=== PATIENT | female | born 1980 | race Caucasian/White ===

== ENCOUNTER 2022-06-24 19:53 | Emergency (ER) | payer MEDICAID ==
[~2022-06-24] VITALS: Ht 165.1 cm; Wt 71.2 kg
[2022-06-24 20:12] VITALS: BP 139/85
== END 2022-06-24 21:22 | disposition home or self-care (01) ==
LOC: ER 19:54
DX: S80.01XA Contusion of right knee, initial encounter (principal); S40.012A Contusion of left shoulder, initial encounter; S40.011A Contusion of right shoulder, initial encounter; M25.532 Pain in left wrist; V19.9XXA Pedal cyclist (driver) (passenger) injured in unspecified traffic accident, initial encounter; Y93.89 Activity, other specified; Y92.488 Other paved roadways as the place of occurrence of the external cause; Y99.8 Other external cause status
CPT/HCPCS: 73110; 73564; 99284

== ENCOUNTER → 2023-06-18 | Outpatient (CLI) | payer MEDICAID | END | disposition home or self-care (01) | LOC: RAD 16:34 → ER 16:34 → EDSTATUS 16:47 → RAD 23:59 | DX: S49.92XA Unspecified injury of left shoulder and upper arm, initial encounter (principal); M25.512 Pain in left shoulder; X58.XXXA Exposure to other specified factors, initial encounter; Y93.89 Activity, other specified; Y92.89 Other specified places as the place of occurrence of the external cause; Y99.8 Other external cause status | CPT/HCPCS: 73030 ==

== ENCOUNTER 2023-07-01 08:20 | Outpatient (CLI) | payer MEDICAID | END 2023-07-01 23:59 | disposition home or self-care (01) | LOC: MRI 08:20 | PROVIDERS: ATTEND Student in an Organized Health Care Education/Training Program | DX: M25.512 Pain in left shoulder (principal) | CPT/HCPCS: 73221 ==

== ENCOUNTER 2024-06-01 20:54 | Emergency (ER) | payer MEDICAID ==
[~2024-06-01] VITALS: Ht 165.1 cm; Wt 68.2 kg
[2024-06-01 20:56] VITALS: BP 145/86; PULSE 89; RESP 17; O2SAT 99
[2024-06-01 22:08] VITALS: TEMP 98.4
== END 2024-06-01 22:09 | disposition home or self-care (01) ==
LOC: ER 20:55
DX: S63.681A Other sprain of right thumb, initial encounter (principal); X58.XXXA Exposure to other specified factors, initial encounter; Y93.89 Activity, other specified; Y92.89 Other specified places as the place of occurrence of the external cause; Y99.8 Other external cause status
CPT/HCPCS: 29130; 73130; 99283

== ENCOUNTER 2024-07-25 19:11 | Emergency (ER) | payer MEDICAID ==
[~2024-07-25] VITALS: Ht 165.1 cm; Wt 69.4 kg
[2024-07-25 19:24] VITALS: BP 124/88; PULSE 66; RESP 14; O2SAT 97
--- NOTE | 2024-07-25 20:21 | Physician Documentation ---
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 Denies any HI or SI. At home she attempted to close the wound with 2nd skin and a butterfly bandage, she has noted some drainage from the site today. Edges well approximated. Last tetanus was within the past 5 years. Tetanus Within 5 Years: Yes Medication Reconciliation Allergies: Coded Allergies: No Known Allergies (Unverified , 07/25/24) Review of Systems All Other Systems at this time: Reviewed and Negative Physical Exam Vital Signs: RN Vital Signs have been reviewed: Yes, Temperature: 98.3, Source: Temporal, Heart Rate: 66, Respiratory Rate: 14, BP: 124/88, Pulse Oximetry: 97, Weight: 69.400 Pulse Oximetry Reflects: adequate oxygenation Physical Exam General: Alert, no apparent distress. Respiratory: Lungs clear, no respiratory distress. Chest: No accessory muscle use. Cardiovascular: Regular rate and rhythm, no murmurs. Gastrointestinal: Soft, nontender, nondistended. Bowels sounds present. Extremities: Normal range of motion, no deformity. Neurologic: Oriented x4. Psychiatric: Normal mood and affect. Skin: Normal color, warm and dry. Approximately 2 cm laceration to right elbow, edges are well approximated and secondary healing has begun. No warmth, erythema to site. Drainage is serous. Procedures Laceration/Wound Repair Laceration : Prep: irrigated by nilsa ross Debrided: minimal Undermining: none Repaired: skin Wound Repaired With: Steri-strips Layer Closure?: No Dressing Applied: simple, non-adherent Splint Applied?: No Sling Applied?: No Tolerated Procedure Well?: yes, no complications Progress Results/Orders Results/Orders Vital Signs 07/25/24 19:24 Temp 98.3 Pulse 66 Resp 14 B/P (MAP) 124/88 Pulse Ox 97 Medical Decision Making Findings Radha is a 43-year-old female with a 2cm laceration to her right elbow that occurred yesterday. She tried treatment at home to no avail and has noticed some drainage from it. The drainage appears to be serous and there is no signs of infection at this time. We have irrigated the wound and applied Steri-Strips although it has started to close by secondary intention. We discussed starting her on an antibiotic however using shared decision-making she has opted to just watch it and not have an antibiotic. We have discussed the signs and symptoms to watch out for in case it becomes infected she should be seen by a healthcare provider immediately. She should follow up with her primary care provider in the next 3 days and return back here for any new or worsening symptoms. Her tetanus is up-to-date so she did not receive a vaccine today. Differential Dx:Considerations: Include: Abrasion, Contusion, Retained foreign body Departure Disposition: 01 HOME / SELF CARE / HOMELESS Impression: Primary Impression: Laceration Condition: Stable Discharge Instructions: Laceration Care, Adult, [id number] Additional Instructions: Please monitor for signs of infection such as increased warmth, swelling, pain or redness/drainage and be seen for an antibiotic prescription. Please keep the Steri-Strips in place and they will fall off naturally do not pick at them. Follow up with her primary care provider in the next 3 days and return back here for any new or worsening symptoms. Referrals: NO PRIMARY CARE PROVIDER (PCP) Education Educated: Patient Educated regarding: diagnosis, treatment, prognosis, need for follow up Signature Scribe Signature: . Attestation: Scribed for Janell Razo Rn Perinatal by Janell Landers NP . 07/25/24 20:22 JANELL RAZO [employer] HAND July 25, 2024 20:20
[2024-07-25 20:35] VITALS: TEMP 98.3
== END 2024-07-25 20:36 | disposition home or self-care (01) ==
LOC: ER 19:12
DX: S51.011A Laceration without foreign body of right elbow, initial encounter (principal); W26.0XXA Contact with knife, initial encounter; Y93.89 Activity, other specified; Y92.89 Other specified places as the place of occurrence of the external cause; Y99.8 Other external cause status
CPT/HCPCS: 99281; A6266; A6407; A6449